=== PATIENT | female | born 1980 | race African-American/Black ===

== ENCOUNTER 2016-11-18 12:54 | Emergency (ER) | payer MEDICAID ==
[~2016-11-18] VITALS: Ht 162.6 cm; Wt 62.6 kg
[2016-11-18 13:05] VITALS: BP 132/83
--- NOTE | 2016-11-18 15:09 | NUR ---
Patient ambulated to bed 6. RN evaluating patient at bedside.
--- NOTE | 2016-11-18 15:15 | NUR ---
PT PRESENTS TO ER FOR EVALUATION OF RETAINED TAMPON X3 DAYS.VAGINAL PAIN THAT RADIATES TO LOWER ABDOMEN ;PAIN UPON URINATION;NO DISCHARGES COMING OUT. DENIES N/V/D; SKIN IS PINK/WARM/DRY; AAOX4 WITH EVEN AND STEADY GAIT; LUNGS CLEAR BL; HR EVEN AND REGULAR; PT DENIES ANY FEVER, CP, SOB, OR COUGH AT THIS TIME;PATIENT POSITIONED FOR COMFORT; HOB ELEVATED; BEDRAILS UP X2; BED DOWN.
[2016-11-18 16:12] VITALS: BP 146/77
--- NOTE | 2016-11-18 16:12 | NUR ---
Patient discharged with v/s stable. Written and verbal after care instructions given and explained. Patient verbalized understanding. Ambulatory with steady gait. All questions addressed prior to discharge. Advised to follow up with PMD.
== END 2016-11-18 16:12 | disposition home or self-care (01) ==
LOC: MED 12:54
DX: T19.2XXA Foreign body in vulva and vagina, initial encounter (principal); X58.XXXA Exposure to other specified factors, initial encounter; Y93.89 Activity, other specified; Y92.89 Other specified places as the place of occurrence of the external cause; Y99.8 Other external cause status
CPT/HCPCS: 99284

== ENCOUNTER 2018-02-02 17:27 | Inpatient (IN) | payer MEDICAID ==
[~2018-02-02] VITALS: Ht 162.6 cm; Wt 75.3 kg
[2018-02-02 17:35] VITALS: BP 134/79
--- NOTE | 2018-02-02 17:43 | NUR ---
PT AMBULATED TO ER BED 05
--- NOTE | 2018-02-02 17:48 | NUR ---
PT. CAME INTO THE ED DUE TO CHEST PAIN X 2 DAYS. PT. STATES " ABOUT TWO DAYS AGO I STARTED HAVING CHEST PAIN AND ITS LIKE PINS AND NEEDLES AND I FEEL A LITTLE LIGHTHEADED". PT. HAS 7/10 L SIDED CHEST PAIN THAT IS NON RADIATING AND INTERMITTENT AND DESCRIBED PINS AND NEEDLES. PT DENIES ANY SOB, DENIES N/V/D. RR EVEN AND UNLABORED. SKIN WARM AND DRY TO TOUCH. ER MD NOTIFIED. WILL CONTINUE TO MONITOR. FAMILY MEMBER AT BEDSIDE.
[2018-02-02] MEDS ORDERED: ASPIRIN 81 MG TAB.CHEW PO ONE (18:00)
--- NOTE | 2018-02-02 18:11 | NUR ---
X RAY AT BEDSIDE AT THIS TIME.
[2018-02-02 18:30] LABS: BASOPHILS % (AUTO) 0.5 % (0.0-2.0); EOSINOPHILS # (AUTO) 0.1 K/uL (0-0.4); EOSINOPHILS % (AUTO) 1.8 % (0.0-4.0); HEMATOCRIT 33.6 % (36-48); HEMOGLOBIN 10.2 g/dL (12.0-16.0); LYMPHOCYTES # (AUTO) 1.3 K/uL (2.5-16.5); LYMPHOCYTES % (AUTO) 20.9 % (20.5-51.1); MEAN CORPUSCULAR HEMOGLOBIN 22 pg (27-31); MEAN CORPUSCULAR HGB CONC 31 g/dL (33-37); MEAN CORPUSCULAR VOLUME 71.5 fL (80-94); MONOCYTES # (AUTO) 0.6 K/uL (0.8-1.0); MONOCYTES % (AUTO) 10.1 % (1.7-9.3); NEUTROPHILS # (AUTO) 4.2 K/uL (1.8-7.7); NEUTROPHILS % (AUTO) 66.7 % (42.2-75.2); PLATELET COUNT (AUTO) 223 K/uL (140-450); RED CELL DISTRIBUTION WIDTH 16.8 % (11.6-13.7); WHITE BLOOD COUNT (AUTO) 6.3 K/uL (4.8-10.8)
[2018-02-02 18:42] LABS: ANION GAP 5.7 (8-16); CARBON DIOXIDE 32.2 mmol/L (21-32); CREATININE 0.7 mg/dL (0.6-1.3); POTASSIUM 3.9 mmol/L (3.5-5.1)
[2018-02-02 18:43] LABS: APPEARANCE,URINE CLOUDY (CLEAR); BILIRUBIN,URINE NEGATIVE (NEGATIVE); BLOOD, URINE NEGATIVE (NEGATIVE); COLOR,URINE YELLOW (YELLOW); LEUKOCYTE ESTERASE ,URINE NEGATIVE (NEGATIVE); NITRITE, URINE POSITIVE (NEGATIVE); PH,URINE 6.5 (5.0-9.0); UGLUCOSE NEGATIVE (NEGATIVE)
[2018-02-02 18:48] LABS: ALBUMIN 3.3 g/dL (3.4-5.0); TOTAL BILIRUBIN 0.2 mg/dL (0.0-1.0)
--- NOTE | 2018-02-02 18:55 | NUR ---
Tali hackett in [facility] - 02/02/18 at 1905 by BLAZE BS : [id number] NOTIFIED ER MD DAMON.
[2018-02-02 18:57] LABS: RBC,URINE 0-5 (RARE) /HPF (0-5); WBC,URINE 0-5 (RARE) /HPF (0-5)
--- NOTE | 2018-02-02 19:00 | NUR ---
PT. RESTING COMFORTABLY IN BED RR EVEN AND UNLABORED, BED IN LOWEST POSITION. WILL CONTINUE TO MONITOR.
--- NOTE | 2018-02-02 19:13 | NUR ---
Pt report given to VIANNEY PATEL . Transfer of care at this time.
--- NOTE | 2018-02-02 19:15 | NUR ---
ASSUMED CARE OF PT AT THIS TIME. PT RESTING COMFORTABLY. PT AWAITS ADMISSION. NAD. VSS. WILL CONTINUE TO MONITOR.
[2018-02-02 22:20] VITALS: BP 105/69
--- NOTE | 2018-02-02 22:20 | NUR ---
REPORT RECEIVED FROM ED NURSE. PT IN STABLE CONDITION. AAOX3. PT DROWSY. BOARD UPDATED AND INTRODUCED SELF TO PT AND SIGNIFICANT OTHER. IV SITE PATENT AND INTACT RIGHT HAND 20G. SKIN WARM, DRY, AND INTACT WITH NO OPEN WOUNDS. ADMITTED UNDER DR. MURILLO. BED LOCKED IN LOW POSITION. CALL BREWER WITHIN REACH.
--- NOTE | 2018-02-02 22:20 | NUR ---
Patient will be admitted to [facility]. AdmiTted to TELE/OBS. Will go to room 106B. Belongings list completed. Report to VIANNEY CEBALLOS.
[2018-02-02] MEDS ORDERED: ONDANSETRON 4 MG/2 ML VIAL IVP PRN (22:50)
[2018-02-02] MEDS ORDERED: ACETAMINOPHEN 325 MG TAB PO PRN (22:50)
--- NOTE | 2018-02-02 23:30 | NUR ---
VS STABLE. NO S/S OF DISTRESS.
[2018-02-03] VITALS: BP 110/72
--- NOTE | 2018-02-03 02:00 | NUR ---
PT SLEEPING COMFORTABLY IN BED. NO S/S OF DISTRESS. WILL CONTINUE TO MONITOR.
[2018-02-03 02:52] LABS: CREATINE KINASE MB 1.3 ng/mL (0-3.6)
--- NOTE | 2018-02-03 03:45 | NUR ---
VS STABLE. PT ASLEEP BUT AROUSABLE.
[2018-02-03 04:00] VITALS: BP 106/57
[2018-02-03 07:05] LABS: BASOPHILS % (AUTO) 0.3 % (0.0-2.0); EOSINOPHILS # (AUTO) 0.2 K/uL (0-0.4); EOSINOPHILS % (AUTO) 2.7 % (0.0-4.0); HEMATOCRIT 33.5 % (36-48); HEMOGLOBIN 10.5 g/dL (12.0-16.0); LYMPHOCYTES # (AUTO) 2.1 K/uL (2.5-16.5); LYMPHOCYTES % (AUTO) 34.4 % (20.5-51.1); MEAN CORPUSCULAR HEMOGLOBIN 22 pg (27-31); MEAN CORPUSCULAR HGB CONC 31 g/dL (33-37); MEAN CORPUSCULAR VOLUME 70.8 fL (80-94); MONOCYTES # (AUTO) 0.6 K/uL (0.8-1.0); MONOCYTES % (AUTO) 9.8 % (1.7-9.3); NEUTROPHILS # (AUTO) 3.3 K/uL (1.8-7.7); NEUTROPHILS % (AUTO) 52.8 % (42.2-75.2); PLATELET COUNT (AUTO) 222 K/uL (140-450); RED BLOOD CELL COUNT(AUTO) 4.73 MIL/uL (4.20-5.40); RED CELL DISTRIBUTION WIDTH 16.6 % (11.6-13.7); WHITE BLOOD COUNT (AUTO) 6.2 K/uL (4.8-10.8)
--- NOTE | 2018-02-03 07:20 | NUR ---
REPORT GIVEN TO AM NURSE AT BEDSIDE. PT IN STABLE CONDITION.
--- NOTE | 2018-02-03 07:21 | NUR ---
RECEIVED REPORT FROM LEAD INVESTIGATOR NURSE LIN AT BEDSIDE FOR CONTINUITY OF CARE. PT IS AAOX4. INTRODUCED SELF AND UPDATED BOARD. PT DENIES CHEST PAIN. NO SOB. NO COUGH. O2 SAT 97% ON RA. IV TO R HAND 20G SL. NO SIGNS OF DISTRESS. CALL LIGHT WITHIN REACH. BED IN LOW POSITION, WHEELS LOCKED. WILL CONTINUE TO MONITOR.
[2018-02-03 07:24] LABS: ALBUMIN 2.9 g/dL (3.4-5.0); CARBON DIOXIDE 30.6 mmol/L (21-32); CREATININE 0.8 mg/dL (0.6-1.3); MAGNESIUM 1.8 mg/dL (1.8-2.4); PHOSPHORUS 2.9 mg/dL (2.5-4.9); POTASSIUM 3.6 mmol/L (3.5-5.1); TOTAL BILIRUBIN 0.2 mg/dL (0.0-1.0)
[2018-02-03 08:00] VITALS: BP 109/66
--- NOTE | 2018-02-03 08:35 | NUR ---
PATIENT HAS BEEN SCREENED AND CATEGORIZED MODERATE NUTRITION RISK. PATIENT WILL BE SEEN WITHIN 3-5 DAYS OF ADMISSION. 02/05/18 02/07/[address]
[2018-02-03] MEDS ORDERED: ASPIRIN 81 MG TAB.CHEW PO SCH (09:00)
[2018-02-03] MEDS ORDERED: ENOXAPARIN 40 MG/0.4 ML SYR SUBQ SCH (09:00)
[2018-02-03] MEDS ORDERED: SULFAMETH/TRIMETH DS 800/160MG 1 TAB PO SCH (09:00)
--- NOTE | 2018-02-03 11:15 | NUR ---
CM NOTE INITIAL REVIEW FAXED TO [facility] [phone] PH# [phone] AND TO [facility] [phone] PH# [phone]
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
--- NOTE | 2018-02-03 11:28 | NUR ---
CM NOTE SPOKE WITH [facility] PH# [phone] WHO SAID THAT THE ASSIGNED CM IS CHERRI PH# [phone]. CALLED [facility] AND LEFT A VM INQUIRING IF THEY STILL WANT PATIENT TRANSFERRED TO THEIR CONTRACTED FACILITY AND I LEFT HIM MY CONTACT NUMBER, THE NUMBER TO THE NURSING STATION WHERE PATIENT IS AND THE ADMITTING PHYSICIAN'S NUMBER IN CASE THEY NEED A DR TO DR REPORT.
[2018-02-03 12:00] VITALS: BP 107/64
[2018-02-03 12:03] LABS: CREATINE KINASE MB 0.8 ng/mL (0-3.6)
[2018-02-03] MEDS ORDERED: SULF1TAB12 PO (13:38)
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
== END 2018-02-03 14:25 | disposition home or self-care (01) | DRG 203 ==
LOC: MED 17:27 → MTU 22:03 → OBSVTOIN 22:53
PROVIDERS: ADMIT Hospitalist; ATTEND Hospitalist
DX: R07.89 Other chest pain (principal); E44.1 Mild protein-calorie malnutrition; N39.0 Urinary tract infection, site not specified; F14.90 Cocaine use, unspecified, uncomplicated; D64.9 Anemia, unspecified; Z98.891 History of uterine scar from previous surgery; F17.210 Nicotine dependence, cigarettes, uncomplicated
CPT/HCPCS: 99285; G0378; 36415; 71045; 80053; 81001; 82550; 82553; 83735; 83880; 84100; 84484; 85025; 87081; 87086; 93005; J1650; Q0092

== ENCOUNTER 2021-04-22 11:22 | Emergency (ER) | payer MEDICAID ==
[~2021-04-22] VITALS: Ht 162.6 cm; Wt 73.7 kg
[~2021-04-22 11:22] MED LIST: SULF-954 PO
--- NOTE | 2021-04-22 12:00 | NUR ---
AMBULATED TO ER BED 1
[2021-04-22 12:01] VITALS: BP 146/93
--- NOTE | 2021-04-22 12:13 | NUR ---
41 y/o female from home c/o vaginal discomfort and discharge x 2 days. Pt states possible tampon stuck in vagina x 2 days. Noticed string missing and states "i forgot to take it out". States foul odor in discharge. Mild constant pelvic pressure. LMP 11/. Pt awake and alert, does not appear in distress medhx: denies
--- NOTE | 2021-04-22 12:30 | NUR ---
Tampon removed by BRENDA Lozoya at this time during pelvic exam
--- NOTE | 2021-04-22 12:33 | NUR ---
Vaginal swabs collected and given to lab.
[2021-04-22] MEDS ORDERED: FLUC150T PO (12:38)
[2021-04-22] MEDS ORDERED: METR-435 PO (12:38)
[2021-04-22 12:47] VITALS: BP 146/93
--- NOTE | 2021-04-22 12:48 | NUR ---
Patient discharged with v/s stable. Written and verbal after care instructions given and explained. Patient alert, oriented and verbalized understanding of instructions. Ambulatory with steady gait. All questions addressed prior to discharge. ID band removed. Patient advised to follow up with PMD. Rx of Diflucan and Metronidazole given. Patient educated on indication of medication including possible reaction and side effects. Opportunity to ask questions provided and answered.
== END 2021-04-22 12:48 | disposition home or self-care (01) ==
LOC: MED 11:22
DX: T19.2XXA Foreign body in vulva and vagina, initial encounter (principal); N76.0 Acute vaginitis; Z98.890 Other specified postprocedural states; Z79.2 Long term (current) use of antibiotics; X58.XXXA Exposure to other specified factors, initial encounter; Y92.89 Other specified places as the place of occurrence of the external cause; Y93.89 Activity, other specified; Y99.8 Other external cause status
CPT/HCPCS: 36415; 81002; 81025; 87070; 87210; 87491; 99284

== ENCOUNTER 2023-02-02 01:25 | Emergency (ER) | payer MEDICAID ==
[~2023-02-02] VITALS: Ht 162.6 cm; Wt 64.4 kg
[~2023-02-02 01:25] MED LIST changes: +FLUC150T PO; +METR-435 PO
[2023-02-02 01:47] VITALS: BP 138/83; PULSE 83; RESP 16; TEMP 97.6
[2023-02-02 04:05] VITALS: BP 130/80; PULSE 83; RESP 16; TEMP 97.5
== END 2023-02-02 04:05 | disposition home or self-care (01) ==
LOC: MED 01:25
DX: Z30.432 Encounter for removal of intrauterine contraceptive device (principal); Z79.899 Other long term (current) drug therapy
CPT/HCPCS: 99284